=== PATIENT | female | born 1985 | race Caucasian/White ===

== ENCOUNTER 2019-09-01 23:00 | Inpatient (IN) | payer OTHER ==
[2019-09-01] MEDS ORDERED: BUTORPHANOL TARTRATE 1 MG/ML VIAL IVPB ONE (23:38)
[2019-09-01] MEDS ORDERED: PROMETHAZINE HCL 25 MG/1 ML VIAL IVPUSH ONE (23:38)
[2019-09-01] MEDS ORDERED: ELECTROLYTE-148 SOLN 1,000 ML IV SCH (23:45)
[2019-09-02 00:11] VITALS: BMI 31.3
[2019-09-02 00:21] LABS: BASO % 0.2 % (0-2.0); EOS % 0.7 % (0-4.5); HEMATOCRIT 33.2 % (32.4-45.2); HEMOGLOBIN 11.1 GM/dL (10.7-15.3); LYMPH % 24.2 % (8-40); MCH 26.4 pg (25.7-33.7); MCHC 33.4 g/dl (32.0-36.0); MEAN PLT VOLUME 8.2 fl (7.5-11.1); MONO % 8.5 % (3.8-10.2); NEUT % 66.4 % (42.8-82.8); PLATELET COUNT 168 K/MM3 (134-434); RBC 4.21 M/mm3 (3.60-5.2); RDW 14.5 % (11.6-15.6); WHITE BLOOD COUNT 8.6 K/mm3 (4.0-10.0)
[2019-09-02 00:35] LABS: INR 0.99 (0.83-1.09); PROTHROMBIN TIME (PATIENT) 11.7 SEC (9.7-13.0)
[2019-09-02 00:38] LABS: ACTIVATED PTT 25.7 SECONDS (25.2-36.5)
[2019-09-02 00:40] LABS: BLOOD UREA NITROGEN 4.3 mg/dL (7-18); CALCIUM 8.7 mg/dL (8.5-10.1); CREATININE 0.7 mg/dL (0.55-1.3)
[2019-09-02] MEDS ORDERED: FENTANYL/BUPIVACAINE/NS/PF - PCEA - 50 ML DISP.SYRIN EP ONE ×2 (00:41→04:03)
[2019-09-02] MEDS ORDERED: NALOXONE HCL 0.4 MG/ML VIAL IVPUSH PRN (01:25)
[2019-09-02] MEDS ORDERED: FENTANYL/BUPIVACAINE/NS/PF - PCEA - 50 ML DISP.SYRIN EP SCH (01:30)
[2019-09-02] MEDS ORDERED: OXYTOCIN 20 UNITS in 0.9% NS 20 UNIT/1,000 ML INFUS.BAG IV ONE (04:05)
[2019-09-02] MEDS ORDERED: LIDOCAINE HCL 1% PRESERVATIVE FREE - 30ML VIAL ONE (04:05)
[2019-09-02] MEDS: OXYTOCIN 20 UNITS in 0.9% NS 20 UNIT/1,000 ML INFUS.BAG IV SCH ×2 (04:45→11:00)
--- NOTE | 2019-09-02 04:55 | HP ---
Past Medical History - Admission Chief Complaint: Painful contractions. History Source: Patient, Medical Record Limitations to Obtaining History: No Limitations - Past Medical History Cardiovascular: No: HTN Pulmonary: No: COPD Gastrointestinal: Yes: GERD Hepatobiliary: No: Hepatitis B, Hepatitis C Renal/: No: Renal Calculi, UTI ...: 2 ...Para: 1 ...Term: 1 ...: 0 ...Spon : 0 ...Induced : 0 ...Multiple Gestation: 0 ...EDC by Sono: 09/21/19 Psych: No: Anxiety, Bipolar, Depression - Past Surgical History Past Surgical History: Yes: None Hx Myomectomy: No Hx Transabdominal Cerclage: No - Smoking History Smoking history: Never smoked Have you smoked in the past 12 months: No - Alcohol/Substance Use Hx Alcohol Use: No History of Substance Use: reports: None - Social History History of Recent Travel: No Home Medications - Allergies Allergies/Adverse Reactions: Allergies Allergy/AdvReac Type Severity Reaction Status Date / Time Sulfa (Sulfonamide Allergy Verified 09/01/19 23:38 Antibiotics) - Home Medications Home Medications: Ambulatory Orders Amoxicillin - [Amoxicillin 500mg Capsule -] 1 tab PO DAILY 09/01/19 Pnv No.95/Ferrous Fum/Folic AC [ Vitamin Tablet] 1 each PO DAILY metroNIDAZOLE 1% CREAM [Metrocream 1% Cream -] 1 VG DAILY 09/01/19 Review of Systems - Review of Systems Constitutional: reports: No Symptoms Eyes: reports: No Symptoms HENT: reports: No Symptoms Neck: reports: No Symptoms Cardiovascular: reports: No Symptoms Respiratory: reports: No Symptoms Gastrointestinal: reports: No Symptoms Genitourinary: reports: Other (pressure/contractions) Breasts: reports: No Symptoms Reported Musculoskeletal: reports: No Symptoms Integumentary: reports: No Symptoms Neurological: reports: No Symptoms Endocrine: reports: No Symptoms Hematology/Lymphatic: reports: No Symptoms Psychiatric: reports: No Symptoms Physical Exam - Maternity Vital Signs: Vital Signs Temperature 98.0 F 09/02/19 04:00 Pulse Rate 78 09/02/19 03:30 Respiratory Rate 20 09/02/19 03:30 Blood Pressure 124/75 09/02/19 03:30 O2 Sat by Pulse Oximetry (%) 98 09/02/19 03:30 Constitutional: Yes: Well Nourished, Calm, Mild Distress (with contractions) Eyes: Yes: Conjunctiva Clear, EOM Intact HENT: Yes: Atraumatic, Normocephalic Neck: Yes: Trachea Midline Lungs: Clear to auscultation - Abdominal Exam/OB Number of Fetuses: Single Presentation: Vertex Contractions: Yes Regularity: Regular - Vaginal Exam/OB Speculum Exam: No Dilatation (cm): 2-3 Effacement (%): 50 Amniotic Membrane Status: Intact Presentation: Vertex/Position (exam per nursing staff) - Physical Exam Psychiatric: Yes: Alert, Oriented - Labs Lab Results: CBC, BMP 09/01/19 23:45 09/01/19 23:45 Hemorrhage Risk Assessment - Risk Factors Medium Risk Factors: Yes: None High Risk Factors: Yes: None Risk Score: 1 Risk Level: Medium Risk Problem List - Problems (1) Labor established Code(s): [id number] - Assessment/Plan 33 y/o with SIUP at 37.1 weeks gestation, painful contractions, early labor AFVSS FHTs cat 1 admit to L&D stadol or epidural prn gbs negative
[2019-09-02] MEDS ORDERED: WITCH HAZEL 50% (TUCKS) 40 PAD/JAR PAD TP PRN (05:00)
[2019-09-02] MEDS ORDERED: BENZOCAINE 28 GM HEMORRHOIDAL OINTMENT TP PRN (05:00)
[2019-09-02] MEDS ORDERED: BISACODYL 10 MG SUPP.RECT RC PRN (05:00)
[2019-09-02] MEDS ORDERED: BENZOCAINE 20% 57 GM BOTTLE TP PRN (05:00)
[2019-09-02] MEDS ORDERED: METHYLERGONOVINE MALEATE 0.2 MG/1 ML AMP IM PRN (05:00)
--- NOTE | 2019-09-02 05:00 | PN ---
Delivery - Delivery Vaginal Delivery: No Problems Episiotomy/Laceration: None EBL (cc): 250 Delivery, Single - Stages of Labor Date of Delivery: 09/02/19 Time of Delivery: 04:38 Date Placenta Delivered: 09/02/19 Time Placenta Delivered: 04:45 Placenta: Yes: Spontaneous - Condition of Coin Wrapping Machine Operator/Professor Of Business Administration Present: No Gender: Male Position: Left, OA - 1 Minute Total Score: 9 5 Minutes Total Score: 9 - Feeding Plan Initial Plan: Elected not to breastfeed exclusively throughout hospitalization Remarks - Remarks Remarks: Uncomplicated of baby boy from DODIE position anterior shoulder (right) delivered with ease along with remainder of 3vc noted, clamped and cut mouth/nose bulb suctioned after delivery, tactile stimulation given placenta delivered in tact, spontaneously sponge count correct after delivery mom stable baby to well baby nursery oxytocin infusing after delivery
[2019-09-02] MEDS: FERROUS SO4 325 MG TABLET (FP) PO SCH ×3 (08:13→16:44)
[2019-09-02] MEDS: IBUPROFEN 600 MG TABLET (FP) PO PRN (10:17)
[2019-09-02] MEDS: ACETAMINOPHEN 325 MG TABLET (FP) PO PRN (10:18)
[2019-09-03] MEDS: ACETAMINOPHEN 325 MG TABLET (FP) PO PRN ×2 (05:16→11:11)
[2019-09-03] MEDS: IBUPROFEN 600 MG TABLET (FP) PO PRN ×2 (05:16→11:14)
[2019-09-03] MEDS: FERROUS SO4 325 MG TABLET (FP) PO SCH ×3 (08:47→17:16)
[2019-09-03 10:30] LABS: BASO % 0.4 % (0-2.0); EOS % 0.9 % (0-4.5); HEMATOCRIT 32.5 % (32.4-45.2); LYMPH % 21.4 % (8-40); MCH 26.7 pg (25.7-33.7); MCHC 33.8 g/dl (32.0-36.0); MONO % 5.8 % (3.8-10.2); NEUT % 71.5 % (42.8-82.8); PLATELET COUNT 158 K/MM3 (134-434); RBC 4.11 M/mm3 (3.60-5.2); RDW 14.8 % (11.6-15.6); WHITE BLOOD COUNT 10.5 K/mm3 (4.0-10.0)
--- NOTE | 2019-09-03 10:45 | PN ---
Post Progress Note - Subjective Subjective: 33 yo Para 2 status post vaginal delivery, seen and evaluated. Doing well Post Day: 1 Type of Delivery: Vital Signs: Vital Signs Temperature 98.3 F 09/03/19 08:30 Pulse Rate 64 09/03/19 08:30 Respiratory Rate 20 09/02/19 20:12 Blood Pressure 118/66 09/03/19 08:30 O2 Sat by Pulse Oximetry (%) 98 09/02/19 04:15 Breast Exam: Yes: Soft Uterus: Yes: Fundus Firm Abdomen/GI: Yes: Abdomen soft, Tolerating PO Lochia: Yes: Rubra Lochia, amount: Moderate Extremities: Yes: Calves non-tender Perineum: Yes: Intact Activity: Ambulating - Labs Labs: CBC WBC 10.5 K/mm3 (4.0-10.0) H 09/03/19 09:56 RBC 4.11 M/mm3 (3.60-5.2) 09/03/19 09:56 Hgb 11.0 GM/dL (10.7-15.3) 09/03/19 09:56 Hct 32.5 % (32.4-45.2) 09/03/19 09:56 MCV 79.0 fl (80-96) L 09/03/19 09:56 MCH 26.7 pg (25.7-33.7) 09/03/19 09:56 MCHC 33.8 g/dl (32.0-36.0) 09/03/19 09:56 RDW 14.8 % (11.6-15.6) 09/03/19 09:56 Plt Count 158 K/MM3 (134-434) 09/03/19 09:56 MPV 8.0 fl (7.5-11.1) 09/03/19 09:56 Absolute Neuts (auto) 7.5 K/mm3 (1.5-8.0) 09/03/19 09:56 Neutrophils % 71.5 % (42.8-82.8) 09/03/19 09:56 Lymphocytes % 21.4 % (8-40) 09/03/19 09:56 Monocytes % 5.8 % (3.8-10.2) 09/03/19 09:56 Eosinophils % 0.9 % (0-4.5) 09/03/19 09:56 Basophils % 0.4 % (0-2.0) 09/03/19 09:56 Nucleated RBC % 0 % (0-0) 09/03/19 09:56 Problem List - Problems (1) Status post normal vaginal delivery Problems reviewed: Yes Code(s): [id number] - Assessment/Plan Status post normal vaginal delivery Stable Continue routine care
[2019-09-03 21:08] VITALS: TEMP 97.9
[2019-09-03] MEDS ORDERED: SENNOSIDES/DOCUSATE COMBO (SENNA PLUS) TABLET (UD) PO PRN (22:00)
--- NOTE | 2019-09-04 06:54 | DS ---
Physical Exam-[employer] Vital Signs: Vital Signs Temperature 97.9 F 09/03/19 21:07 Pulse Rate 78 09/03/19 21:07 Respiratory Rate 20 09/03/19 21:07 Blood Pressure 117/66 09/03/19 21:07 O2 Sat by Pulse Oximetry (%) 98 09/02/19 04:15 Constitutional: Yes: Well Nourished, No Distress Gastrointestinal: Yes: WNL, Soft ....Post : Yes: Uterus firm, Uterus non-tender Breast(s): Yes: WNL Musculoskeletal: Yes: WNL Extremities: Yes: WNL Edema: No Neurological: Yes: WNL, Alert, Oriented Labs: CBC, BMP 09/03/19 09:56 09/01/19 23:45 Delivery - Delivery Vaginal Delivery: No Problems Type of Anesthesia: Epidural Episiotomy/Laceration: None EBL (cc): 250 Delivery, Single - Stages of Labor Date 1st Stage Initiatied: 09/01/19 Time 1st Stage Initiated: 22:00 Date 2nd Stage Initiated: 09/02/19 Time 2nd Stage Initiated: 04:30 Date of Delivery: 09/02/19 Time of Delivery: 04:38 Time Placenta Delivered: 04:45 Placenta: Yes: Spontaneous - Condition of Infant Fire Extinguisher Mechanic/Overlocker Present: No Infant Gender: Male Weight: 6 lb 1 oz Position: Left, OA Total Hours ROM (Hrs/Mins): [id number] - 1 Minute Total Score: 9 5 Minutes Total Score: 9 - Feeding Plan Initial Plan: Elected not to breastfeed exclusively throughout hospitalization Discharge Summary Problems reviewed: Yes Reason For Visit: Labor Current Active Problems Labor established (Acute) Status post normal vaginal delivery (Acute) Procedures: Principal: normal vaginal delivery Condition: Good - Instructions Disposition: HOME - Home Medications Comprehensive Discharge Medication List: Ambulatory Orders Amoxicillin - [Amoxicillin 500mg Capsule -] 1 tab PO DAILY 09/01/19 Pnv No.95/Ferrous Fum/Folic AC [ Vitamin Tablet] 1 each PO DAILY metroNIDAZOLE 1% CREAM [Metrocream 1% Cream -] 1 VG DAILY 09/01/19
[2019-09-04] MEDS: FERROUS SO4 325 MG TABLET (FP) PO SCH ×2 (09:13→13:03)
[2019-09-04 16:31] VITALS: BP 129/78; PULSE 80
== END 2019-09-04 11:30 | disposition home or self-care (01) | DRG 560 ==
LOC: JLDR 23:00 → J3W 09-02 06:30
PROVIDERS: ADMIT Obstetrics & Gynecology; ATTEND Obstetrics & Gynecology
PROC: 10E0XZZ Delivery of Products of Conception, External Approach (ICD-10-PCS; principal; 2019-09-02)
DX: O80 Encounter for full-term uncomplicated delivery (principal); Z3A.37 37 weeks gestation of pregnancy; Z37.0 Single live birth
CPT/HCPCS: 36415; 59409; 80048; 85025; 85610; 85730; 86593; 86850; 86900; 86901